=== PATIENT | female | born 1990 | race Caucasian/White ===

== ENCOUNTER → 2024-05-20 | Outpatient (CLI) | payer OTHER | END | disposition home or self-care (01) | LOC: NST 10:51 | PROVIDERS: ATTEND Obstetrics & Gynecology Maternal & Fetal Medicine | DX: Z34.82 Encounter for supervision of other normal pregnancy, second trimester (principal) ==

== ENCOUNTER 2024-06-10 11:14 | Outpatient (CLI) | payer OTHER | END 2024-06-10 12:24 | disposition home or self-care (01) | LOC: NST 11:14 | PROVIDERS: ATTEND Obstetrics & Gynecology Maternal & Fetal Medicine | DX: Z34.83 Encounter for supervision of other normal pregnancy, third trimester (principal) ==

== ENCOUNTER 2024-07-20 15:57 | Outpatient (CLI) | payer OTHER | END 2024-07-20 16:55 | disposition home or self-care (01) | LOC: NST 15:57 | PROVIDERS: ATTEND Obstetrics & Gynecology Gynecology | DX: Z34.83 Encounter for supervision of other normal pregnancy, third trimester (principal) ==

== ENCOUNTER 2024-07-27 13:35 | Inpatient (IN) | payer OTHER ==
[~2024-07-27] VITALS: Ht 167.6 cm; Wt 68.9 kg
[2024-07-27 12:31] VITALS: BP 133/97; O2SAT 99
[2024-07-27 13:24] VITALS: BP 117/80; BP 121/85; BP 133/97
[2024-07-27] MEDS ORDERED: MAGNESIUM SULFATE IN WATER 500 ML IV SCH (14:00)
[2024-07-27] MEDS ORDERED: BETAMETHASONE ACETATE,SOD PHOS 30 MG/5 ML ML IM NR (14:00)
[2024-07-27] MEDS ORDERED: RINGERS SOLUTION,LACTATED 1,000 ML IV SCH (14:00)
[2024-07-27 14:32] LABS: URINE APPEARANCE Clear; URINE BILIRRUBIN Negative (NEGATIVE); URINE BLOOD Negative; URINE COLOR Yellow; URINE GLUCOSE Negative (NEGATIVE); URINE KETONE Negative (NEGATIVE); URINE LEUKOCYTE Trace; URINE NITRATE Negative; URINE PROTEIN 30 (NEGATIVE); URINE UROBILINOGEN 0.2 E.U./dl
[2024-07-27 14:36] LABS: URINE BACTERIA 2334.5 uL (0.0-1933); URINE EPITHELIAL CELLS 48.3 uL (0.0-38.8); URINE WBC 28.9 uL (0.0-23.2)
[2024-07-27 14:43] LABS: HEMATOCRIT 31.1 % (36.0-45.00); HEMOGLOBIN 10.4 g/dL (12.0-15.00); MEAN CELL VOLUME 75.9 fL (80.00-100.00); MEAN CORPUSCULAR HEMOGLOBIN 25.5 pg (27.00-32.0); MEAN CORPUSCULAR HGB CONC 33.6 g/dl (32.0-36.0); PLATELET COUNT 167 K/uL (150-450); RED BLOOD COUNT 4.09 M/uL (4.00-6.00); RED CELL DISTRIBUTION WIDTH 14.5 % (11.5-14.5)
[2024-07-27 15:01] LABS: INR 0.95; PARTIAL THROMBOPLASTIN TIME 25.9 SECONDS (22.0-34.0); PROTHROMBIN TIME 10.4 SECONDS (9.0-11.5)
[2024-07-27] MEDS ORDERED: ZOLOFT100 MG PO (15:18)
[2024-07-27 15:19] LABS: ALBUMIN 2.4 gm/dL (3.4-5.0); BILIRUBIN TOTAL 0.56 mg/dL (0.3-1.2); CALCIUM 8.8 mg/dL (8.5-10.1); CREATININE SERUM 0.6 mg/dL (0.55-1.02); GFR 114.43; GLOBULINA 3.6 G/DL (2.4-3.5); POTASSIUM 4.35 mEq/L (3.5-5.1)
[2024-07-27] MEDS ORDERED: REGLAN5 MG/5 ML PO (15:19)
[2024-07-27] MEDS ORDERED: PRENATAL TABLE1 EAC1 (15:20)
[2024-07-27 15:28] VITALS: BP 128/86
[2024-07-27] MEDS ORDERED: METOCLOPRAMIDE HCL 10 MG TABLET PO PRN (15:30)
[2024-07-27 19:30] VITALS: BP 130/82
[2024-07-27 23:50] VITALS: BP 130/76
[2024-07-28] MEDS ORDERED: ACETAMINOPHEN 500 MG GEL..CAP PO PRN (00:45)
[2024-07-28] MEDS ORDERED: MAGNESIUM SULFATE IN WATER 100 ML IV ONE (01:30)
[2024-07-28] MEDS ORDERED: TERBUTALINE SULFATE 1 MG/ML AMPUL SUBCUTANEO ONE (02:15)
[2024-07-28 03:00] VITALS: BP 137/71
[2024-07-28 07:17] VITALS: BP 130/81
[2024-07-28] MEDS ORDERED: SERTRALINE HCL 100 MG TABLET PO SCH (09:00)
[2024-07-28] MEDS ORDERED: PNV,CALCIUM 72/IRON/FOLIC ACID 1 TAB TABLET PO SCH (09:00)
[2024-07-28] MEDS ORDERED: FAMOtidine 20 MG TABLET PO SCH (09:40)
[2024-07-28 12:20] VITALS: BP 126/77
[2024-07-28] MEDS ORDERED: BETAMETHASONE ACETATE,SOD PHOS 30 MG/5 ML ML IM NR (14:15)
[2024-07-28 15:07] VITALS: BP 119/62
[2024-07-28 18:55] VITALS: BP 122/71
[2024-07-28] MEDS ORDERED: CEFAZOLIN SODIUM 1,000 MG VIAL IV SCH (23:00)
[2024-07-28] MEDS ORDERED: CITRIC ACID/SODIUM CITRATE 30 ML BLIST.PACK PO SCH (23:00)
[2024-07-28 23:33] VITALS: BP 124/69
[2024-07-29] MEDS ORDERED: KETOROLAC TROMETHAMINE 30 MG VIAL IV SCH (06:00)
[2024-07-29] MEDS ORDERED: ONDANSETRON HCL 4 MG in 0.9 % SODIUM CHLORIDE 50 ML IV PRN (06:00)
[2024-07-29] MEDS ORDERED: OXYTOCIN 1,000 ML IV SCH (06:00)
[2024-07-29] MEDS ORDERED: MORPHINE SULFATE 4 MG/ML CARTRIDGE IV PRN (06:00)
[2024-07-29] MEDS ORDERED: MORPHINE SULFATE 4 MG/ML VIAL IV ONE ×4 (06:30→08:10)
[2024-07-29] MEDS ORDERED: KETOROLAC TROMETHAMINE 30 MG VIAL IV ONE (06:30)
[2024-07-29] MEDS ORDERED: ERYTHROMYCIN BASE OPHT 1GM EACH TUBE OP ONE (06:45)
[2024-07-29] MEDS ORDERED: OXYTOCIN 10 UNITS/ML VIAL IV ONE (06:45)
[2024-07-29] MEDS ORDERED: LABETALOL HCL 200 MG/40 ML VIAL IV SCH (06:51)
[2024-07-29 08:40] VITALS: BP 180/105
[2024-07-29] MEDS ORDERED: LABETALOL HCL 200 MG TABLET PO SCH (09:00)
[2024-07-29] MEDS ORDERED: SERTRALINE HCL 100 MG TABLET PO SCH (09:00)
[2024-07-29] MEDS ORDERED: LABETALOL HCL 100 MG/20 ML ML IV SCH (09:00)
[2024-07-29] MEDS ORDERED: hydrALAZINE HCL 20 MG VIAL IV STA (09:08)
[2024-07-29 09:54] VITALS: BP 136/76
[2024-07-29 10:50] VITALS: BP 145/80
[2024-07-29] MEDS ORDERED: hydrOXYzine PAMOATE 25 MG CAPSULE PO NR (13:00)
[2024-07-29 16:00] VITALS: BP 96/56
[2024-07-29 20:11] VITALS: BP 118/73
[2024-07-30] VITALS: BP 106/68
[2024-07-30] MEDS ORDERED: IBUprofen 400 MG TABLET PO SCH (09:00)
[2024-07-30] MEDS ORDERED: OxyCODONE HCL 5 MG TABLET (ROXICODONE) PO SCH (09:00)
[2024-07-30 09:26] LABS: HEMATOCRIT 23.8 % (36.0-45.00); MEAN CELL VOLUME 76.6 fL (80.00-100.00); PLATELET COUNT 136 K/uL (150-450); RED BLOOD COUNT 3.11 M/uL (4.00-6.00); RED CELL DISTRIBUTION WIDTH 14.9 % (11.5-14.5)
[2024-07-30 09:30] VITALS: BP 126/67
[2024-07-30 09:33] LABS: HEMOGLOBIN 7.9 g/dL (12.0-15.00); MEAN CORPUSCULAR HEMOGLOBIN 25.4 pg (27.00-32.0)
[2024-07-30 10:46] LABS: BILIRUBIN TOTAL 0.34 mg/dL (0.3-1.2); CALCIUM 8.3 mg/dL (8.5-10.1); CREATININE SERUM 0.82 mg/dL (0.55-1.02); GFR 79.8; GLOBULINA 2.8 G/DL (2.4-3.5); POTASSIUM 4.16 mEq/L (3.5-5.1); TOTAL PROTEIN 4.8 gm/dL (6.4-8.2)
[2024-07-30] MEDS ORDERED: SOD FERRIC GLUC COMPLX/SUCROSE 62.5 MG/5 ML AMPUL IV SCH (12:00)
[2024-07-30 13:52] VITALS: BP 124/72
[2024-07-30 16:27] VITALS: BP 115/68
[2024-07-30 21:24] VITALS: BP 128/73
[2024-07-31 01:38] VITALS: BP 136/80
[2024-07-31 06:41] LABS: MEAN CELL VOLUME 76.2 fL (80.00-100.00); MEAN CORPUSCULAR HGB CONC 33.2 g/dl (32.0-36.0); PLATELET COUNT 151 K/uL (150-450); RED BLOOD COUNT 2.95 M/uL (4.00-6.00)
[2024-07-31 06:43] LABS: HEMATOCRIT 22.5 % (36.0-45.00); HEMOGLOBIN 7.5 g/dL (12.0-15.00); MEAN CORPUSCULAR HEMOGLOBIN 25.4 pg (27.00-32.0)
[2024-07-31] MEDS ORDERED: FERROUS SULFATE 325 MG TABLET.EC PO SCH (06:51)
[2024-07-31 08:54] VITALS: BP 123/84
[2024-07-31] MEDS ORDERED: KETOROLAC TROMETHAMINE 10 MG TABLET PO PRN (09:00)
[2024-07-31 11:38] LABS: MEAN CELL VOLUME 77.1 fL (80.00-100.00); MEAN CORPUSCULAR HGB CONC 32.2 g/dl (32.0-36.0); PLATELET COUNT 170 K/uL (150-450); RED BLOOD COUNT 3.25 M/uL (4.00-6.00)
[2024-07-31 11:42] LABS: HEMOGLOBIN 8.1 g/dL (12.0-15.00); MEAN CORPUSCULAR HEMOGLOBIN 24.9 pg (27.00-32.0)
[2024-07-31 16:00] VITALS: BP 110/72
[2024-07-31 20:00] VITALS: BP 119/77
[2024-08-01 00:38] VITALS: BP 126/76
[2024-08-01 08:33] VITALS: BP 136/80
[2024-08-01] MEDS ORDERED: LABETALOL HCL200 MG PO (10:57)
[2024-08-01] MEDS ORDERED: KETO10TA2 PO (10:58)
[2024-08-01] MEDS ORDERED: INTEGRA PLUS C1 EACH PO (10:59)
[2024-08-01] MEDS ORDERED: PERCOCET 5-3251 EACH PO (10:59)
== END 2024-08-01 17:33 | disposition home or self-care (01) | DRG 788 ==
LOC: LDR 13:35 → OB/GYN 13:35
PROVIDERS: Obstetrics & Gynecology; ADMIT Obstetrics & Gynecology Maternal & Fetal Medicine; ATTEND Obstetrics & Gynecology Maternal & Fetal Medicine
PROC: 4A1HXCZ Monitoring of Products of Conception, Cardiac Rate, External Approach (ICD-10-PCS; 2024-07-27)
PROC: 0UB00ZZ Excision of Right Ovary, Open Approach (ICD-10-PCS; 2024-07-29)
PROC: 10D00Z1 Extraction of Products of Conception, Low, Open Approach (ICD-10-PCS; principal; 2024-07-29 09:00)
DX: O14.04 Mild to moderate pre-eclampsia, complicating childbirth (principal); O60.12X2 Preterm labor second trimester with preterm delivery second trimester, fetus 2; O32.1XX2 Maternal care for breech presentation, fetus 2; O30.043 Twin pregnancy, dichorionic/diamniotic, third trimester; N80.121 Deep endometriosis of right ovary; O34.83 Maternal care for other abnormalities of pelvic organs, third trimester; Z37.2 Twins, both liveborn; Z3A.34 34 weeks gestation of pregnancy